=== PATIENT | male | born 1955 | race Caucasian/White ===

== ENCOUNTER 2017-01-30 09:46 | Emergency (ER) | payer MEDICAID, OTHER ==
[~2017-01-30] VITALS: Ht 175.3 cm; Wt 112.9 kg
[2017-01-30] MEDS ORDERED: ALBU6.7H INH (10:16)
[2017-01-30] MEDS ORDERED: LISI-170 PO (10:16)
[2017-01-30] MEDS ORDERED: ASPI-496 PO (10:16)
[2017-01-30] MEDS ORDERED: SODIUM CHLORIDE FLUSH 10ML SYR IVF ONE (10:30)
[2017-01-30] MEDS ORDERED: MORPHINE SULFATE 4 MG/ML, 1ML IVPush PRN (10:30)
[2017-01-30 10:55] LABS: HEMOGLOBIN 17.5 g/dL (13.7-18.0)
[2017-01-30 11:08] LABS: ASPARTATE AMINO TRANSFERASE 67 U/L (15-37); BLOOD UREA NITROGEN 10 mg/dL (7-18)
[2017-01-30 11:13] LABS: IS PT STATUS REG ER OR PRE ER? NO
[2017-01-30 12:23] VITALS: BP 131/83
== END 2017-01-30 12:25 | disposition home or self-care (01) ==
LOC: ED 11:17
DX: R06.00 Dyspnea, unspecified (principal); I10 Essential (primary) hypertension; J45.909 Unspecified asthma, uncomplicated; I25.2 Old myocardial infarction
CPT/HCPCS: 36415; 71010; 80053; 83605; 83880; 84484; 85025; 85379; 93005; 99285